=== PATIENT | male | born 1965 | race Caucasian/White ===

== ENCOUNTER 2018-11-01 05:41 | Day surgery (SDC) | payer BC, OTHER ==
[~2018-11-01] VITALS: Ht 188 cm; Wt 108.9 kg
--- NOTE | ~2018-11-01 | O ---
[facility] [place] [address] OPERATIVE REPORT Name: MARCUS ZURITA Room #: 150-9 [facility]#: [id number] Admission: 11/01/18 Attend Phys: Pito Dasilva MD Discharge: Date of : 63 Report #: [id number] THIS REPORT FOR: //name// CC: Pito Kauffman Brewster DATE OF SERVICE: 11/01/2018 PREOPERATIVE DIAGNOSIS: Right knee pain with medial and lateral meniscus tear and patellofemoral chondromalacia. POSTOPERATIVE DIAGNOSIS: Right knee pain with medial and lateral meniscus tear and patellofemoral chondromalacia. PROCEDURE: Right knee arthroscopy with debridement of mild medial and lateral meniscus damage and more moderate patellofemoral chondromalacia. HISTORY: This 53-year-old gentleman complains of moderate persistent and progressive right knee pain. He has been trying to function, but with more and more difficulty with pain, which is unresponsive to conservative measures. Clinical exam and MRI study confirms some mild medial meniscus and lateral meniscus damage as well as some patellofemoral chondromalacia. We have elected to go ahead with arthroscopic debridement. DESCRIPTION OF PROCEDURE: The patient was taken to the operating room where he was placed under general anesthesia. Prophylactic intravenous antibiotics were administered. The right knee and leg were meticulously prepped and draped and a thigh tourniquet inflated to 300 mmHg. A lateral suprapatellar inflow cannula was placed. The arthroscope and probe were introduced. Various compartments were sequentially visualized and documented with arthroscopic photography. The patellofemoral compartment revealed rather severe degenerative chondromalacia with grade 3 to mild grade 4 damage on both the patella and the trochlear region. I suspect this is the primary source of his discomfort. These areas were gently smoothed. There were some areas of the delaminating loose irregular cartilage, which was trimmed back to a more smooth even margin. There were other areas of less severe cartilage damage, which were only gently debrided. The patella seems to track nicely, although with moderate crepitus, probably contributing to his discomfort. There is a moderate prepatellar plica extending obliquely from lateral to medial. This seemed to abrade across the femoral condyles to some extent and was debrided as well. The medial compartment reveals mild degenerative irregular fraying and tearing along the inner margin of the medial meniscus. This was mostly in the medial to posterior aspect and was debrided with a small shaver. The majority of the meniscus including the outer two-thirds is still in good shape and stable and did not require debridement. The cartilage surfaces on the medial femoral [address] [address] OPERATIVE REPORT Name: MARCUS ZURITA Randi Room #: 150-9 [facility] M..#: [id number] Admission: 11/01/18 Attend Phys: Pito Dasilva MD Discharge: Date of : 63 Report #: [id number] condyle and the medial tibial plateau are in much better shape than the patella and no debridement there was necessary. The lateral compartment was similar to the medial side with mild fraying along the inner margin of the lateral meniscus extending back toward the posterior horn, limited debridement of these areas was performed. There was some loose cartilage debris in the posterolateral corner, which was evacuated. The cartilage surfaces on both the lateral femoral condyle and the lateral tibial plateau were in better shape similar to the medial side and no debridement there was necessary. The intercondylar notch reveals the cruciate ligaments to be present and functioning normally. There was mild synovial hypertrophy, which was debrided for visualization. No other abnormalities were identified. The knee was copiously irrigated. All excess fluid was evacuated from the knee. The knee was then injected with 80 mg of Depo-Medrol and 20 mL of 0.5% Marcaine with epinephrine. The puncture sites were closed with interrupted nylon suture. A sterile dressing was applied. The patient was awakened and returned to recovery room in good condition. <ELECTRONICALLY SIGNED> By: Pito Dasilva MD 11/02/18 0731 1218 1229 Pito Dasilva MD /nt
--- NOTE | ~2018-11-01 | EKG ---
[address] [address] ELECTROCARDIOGRAM REPORT Name: MARCUS ZURITA Room #: 150-9 [facility]#: [id number] Admission: 11/01/18 Attend Phys: Pito Dasilva MD Discharge: Date of : 63 Report #: [id number] THIS REPORT FOR: //name// [facility] Test Date: 2018-11-01 Test Time: 09:51:26 Pat Name: MARCUS ZURITA Department: Room: 150 9 Gender: M Office Support Clerk: [place] : 1965 Requested By: Pito Dasilva Order Number: [id number] MD: Yakov Castaneda Measurements Intervals [place] Rate: 72 P: 24 IN: 156 QRS: -33 QRSD: 93 T: 15 QT: 392 QTc: 430 Interpretive Statements Sinus rhythm Left axis deviation Possible septal infarct, age indeterminate No previous ECG available for comparison Electronically Signed On 11-01-2018 16:45:04 [employer]HICLE [employer] by Yakov Castaneda [email or web address] <ELECTRONICALLY SIGNED> By: Yakov Castaneda MD, [facility] 11/01/18 1645 [id number] Yakov Castaneda MD, FACC /EPI
[~2018-11-01 05:41] MED LIST: ASPIR 8181 MG PO; METFORMIN HCL500 MG PO; NORVASC2.5 MG PO; ZESTORETIC 20-1 EAC3 PO
[2018-11-01 09:48] LABS: CALCIUM 9.3 mg/dL (8.5-10.1); POTASSIUM 3.5 mmol/L (3.5-5.1)
[2018-11-01 10:11] VITALS: BP 127/87
[2018-11-01 12:50] VITALS: BP 127/87
== END 2018-11-01 13:23 | disposition home or self-care (01) ==
LOC: OR 05:41 → TBA 05:41 → OR 09:47
PROVIDERS: Orthopaedic Surgery
DX: M23.251 Derangement of posterior horn of lateral meniscus due to old tear or injury, right knee (principal); M23.221 Derangement of posterior horn of medial meniscus due to old tear or injury, right knee; M22.41 Chondromalacia patellae, right knee; I10 Essential (primary) hypertension; Z79.82 Long term (current) use of aspirin; Z79.899 Other long term (current) drug therapy; Z79.84 Long term (current) use of oral hypoglycemic drugs; Z87.442 Personal history of urinary calculi; Z79.4 Long term (current) use of insulin; Z98.890 Other specified postprocedural states; Z90.89 Acquired absence of other organs
CPT/HCPCS: 50010; 50101; 50405; 51038; 54170; 56526; 57103; 62110; 62900; 70005